=== PATIENT | female | born 1965 | race Caucasian/White ===

== ENCOUNTER → 2017-06-01 | Emergency (ER) | payer OTHER ==
[~2017-06-01] VITALS: Ht 154.9 cm; Wt 72.6 kg
== END | disposition home or self-care (01) ==
LOC: ER 14:41
DX: L03.115 Cellulitis of right lower limb (principal); L02.415 Cutaneous abscess of right lower limb

== ENCOUNTER 2018-01-06 10:08 | Emergency (ER) | payer OTHER ==
[~2018-01-06] VITALS: Ht 154.9 cm; Wt 85.7 kg
== END 2018-01-06 14:27 | disposition home or self-care (01) ==
LOC: ER 10:08
DX: M79.1 Myalgia (principal)

== ENCOUNTER 2018-12-28 18:44 | Emergency (ER) | payer OTHER ==
[~2018-12-28] VITALS: Ht 154.9 cm; Wt 82.1 kg
[2018-12-28] MEDS ORDERED: SYNTHROID50 MCG PO (20:18)
[2018-12-29] MEDS ORDERED: MUPIROCIN15 GM TOP (08:24)
[2018-12-29] MEDS ORDERED: INTESTINEX680 M1 PO (08:24)
[2018-12-29] MEDS ORDERED: LEVAQUIN750 MG PO (08:24)
[2018-12-29] MEDS ORDERED: DICLOFENAC SOD100 MG PO (08:24)
== END 2018-12-29 08:35 | disposition home or self-care (01) ==
LOC: ER 18:44
DX: L03.311 Cellulitis of abdominal wall (principal); R10.32 Left lower quadrant pain

== ENCOUNTER 2019-01-06 14:58 | Outpatient (CLI) | payer OTHER ==
[~2019-01-06 14:58] MED LIST: DICLOFENAC SOD100 MG PO; INTESTINEX680 M1 PO; LEVAQUIN750 MG PO; MUPIROCIN15 GM TOP; SYNTHROID50 MCG PO
== END 2019-01-06 15:02 | disposition home or self-care (01) ==
LOC: LAB 14:58
DX: L02.211 Cutaneous abscess of abdominal wall (principal)

== ENCOUNTER 2019-02-03 14:50 | Outpatient (CLI) | payer OTHER | END 2019-02-03 15:45 | disposition home or self-care (01) | LOC: LAB 14:50 | DX: L02.211 Cutaneous abscess of abdominal wall (principal) ==